=== PATIENT | female | born 1965 | race African-American/Black ===

== ENCOUNTER 2018-06-28 08:29 | Observation (INO) ==
[2018-06-28] MEDS ORDERED: Morphine Inj 4 MG/ML Vial IV.PUSH ONE (08:54)
[2018-06-28] MEDS ORDERED: Famotidine PF Inj 20 MG/2 ML Vial IV.PUSH ONE (08:54)
[2018-06-28] MEDS ORDERED: Sod Chloride 0.9% Inj 1,000 ML IV.CONT SCH (09:00)
--- NOTE | 2018-06-28 09:02 | ED ---
HPI General Chief Complaint: Nausea/Vomiting/Diarrhea Stated Complaint: muscle spasm all over Time Seen by Provider: 06/28/18 08:47 Source: patient and family Mode of arrival: ambulatory Limitations: no limitations History of Present Illness HPI narrative: 53-year-old female complains of abdominal pain with nausea vomiting. Patient states that symptoms started 2 days ago. Patient states the pain and cramping pain sharp pain burning pain localized around epigastric area. Patient denies any pain radiation. Patient denies any blood or mucus in the vomitus of the stool. Patient has history of pancreatitis from alcohol abuse. Patient states that she drinks beers daily. Patient states that she was in a coma that required a tracheostomy and feeding tube a few years ago from severe pancreatitis. Patient status post cholecystectomy. Patient denies any illicit drug abuse. MD complaint: abdominal pain Onset (ago): day(s) Pain Consistency: constant Location: epigastric Severity: moderate Severity scale (1-10): 7 Quality: cramping and burning Radiation: none Migration to: no migration Relieving factors: nothing Exacerbating factors: nothing Associated symptoms: nausea and vomiting Related Data Home Medications Medication Instructions Recorded Confirmed No Known Home Medications 06/28/18 06/28/18 Allergies Allergy/AdvReac Type Severity Reaction Status Date / Time No Known Allergies Allergy Verified 06/28/18 08:56 Review of Systems ROS: all other systems reviewed are negative [facility] Medical History Medical History Pancreatitis (Acute) Surgical History Surgical History History of cholecystectomy (Acute) History of tracheostomy (Acute) Social History Social History Substance History: Active Abuse Second Hand Smoke Exposure: Yes Smoking Status: Current every day smoker Tobacco Type: Cigarettes How Often Do You Have a Drink Containing Alcohol: 4 or more times a week Recent Travel in [facility] within the Last 8 Weeks: No Recent Out of Country Travel within the Last 8 Weeks: No Substance Abuse Detail Alcohol: Substance Use Type Other:: beer Substance Use Status: Active Route Used Substance Abuse: By Mouth Reason for Use: Feels Good Immunization History Tetanus Immunization: <5 Years Hx Influenza Vaccine This Season: Yes Exam Narrative Exam Narrative: GENERAL: Well-nourished, well-developed patient. SKIN: Focused skin assessment warm/dry. HEAD: Normocephalic. EYES: No scleral icterus. No injection or drainage. NECK: Supple, trachea midline. No JVD or lymphadenopathy. CARDIOVASCULAR: Regular rate and rhythm without murmurs, gallops, or rubs. RESPIRATORY: Breath sounds equal bilaterally. No accessory muscle use. GASTROINTESTINAL: Abdomen soft, nondistended. Patient has moderate tenderness on palpation epigastric area. No rebound tenderness. No mass. MUSCULOSKELETAL: No cyanosis, or edema. BACK: Nontender without obvious deformity. No CVA tenderness. Neurologic exam normal. Course Initial Documented Vital Signs Temperature 99.5 F 06/28/18 08:35 Pulse Rate 122 H 06/28/18 08:35 Respiratory Rate 18 06/28/18 08:35 Blood Pressure 129/78 06/28/18 08:35 Pulse Oximetry 99 06/28/18 08:35 Last Documented Vital Signs Temperature 99.5 F 06/28/18 08:35 Pulse Rate 101 H 06/28/18 08:48 Respiratory Rate 18 06/28/18 10:31 Blood Pressure 127/82 06/28/18 08:48 Pulse Oximetry 97 06/28/18 08:48 Medical Decision Making MDM Narrative Medical decision making narrative: 53-year-old female complains of epigastric abdominal pain, nausea vomiting. History of recurrent hepatitis of alcohol abuse in the past. Patient drinking beers daily. Normal saline solution 1 25 cc an hour. Pepcid 20 mg IV. Morphine 2 mg IV. Zofran 4 mg IV. Benadryl 25 mg IV. Medical Screen Exam Complete: Yes Emergency Medical Condition: Yes Differential Diagnosis Differential Diagnosis: Differential diagnosis including gastritis, PUD, pancreatitis, colitis, UTI, pyelonephritis, nephrolithiasis. Lab Data Lab results reviewed: Yes I reviewed the patient's lab results. Result diagrams: 06/28/18 09:17 06/28/18 09:17 Lab Results 06/28/18 06/28/18 06/28/18 Range/Units 09:17 09: 09:17 WBC 2.2 L (4.0-11.0) th/mm3 RBC 4.27 (4.00-5.30) mil/mm3 Hgb 14.5 (11.6-15.3) gm/dL Hct 40.8 (35.0-46.0) % MCV 95.6 (80.0-100.0) fL MCH 34.0 (27.0-34.0) pg MCHC 35.6 (32.0-36.0) % RDW 13.4 (11.6-17.2) % Plt Count 116 L (150-450) th/mm3 MPV 10.3 (7.0-11.0) fL Neut % (Auto) 87.8 H (16.0-70.0) % Lymph % (Auto) 10.6 (9.0-44.0) % [place] % (Auto) 1.1 (0.0-8.0) % Eos % (Auto) 0.2 (0.0-4.0) % Baso % (Auto) 0.3 (0.0-2.0) % Neut # (Auto) 1.9 (1.8-7.7) th/mm3 Lymph # (Auto) 0.2 L (1.0-4.8) th/mm3 [place] # (Auto) 0.0 (0.0-0.9) th/mm3 Eos # (Auto) 0.0 (0.0-0.4) th/mm3 Baso # (Auto) 0.0 (0.0-0.2) th/mm3 WBC Differential . Differential Comment Auto diff final PT 11.0 (9.8-11.6) sec INR 1.1 Ratio APTT 23.1 L (24.3-30.1) sec Sodium 134 L (136-145) meq/L Potassium 3.6 (3.5-5.1) meq/L Chloride 100 (98-107) meq/L Carbon Dioxide 21.3 (21.0-32.0) meq/L Anion Gap 13 (5-15) meq/L BUN 6 L (7-18) mg/dL Creatinine 0.82 (0.50-1.00) mg/dL Estimated GFR 88 L (>89) mL/min Random Glucose 143 H (74-106) mg/dL Calcium 9.1 (8.5-10.1) mg/dL Total Bilirubin 1.0 (0.2-1.0) mg/dL AST 24 (15-37) U/L ALT 22 (10-53) U/L Alkaline Phosphatase 91 (45-117) U/L Total Protein 7.7 (6.4-8.2) g/dL Albumin 3.5 (3.4-5.0) g/dL Lipase 912 H (73-393) U/L Imaging Data Attestation: I personally reviewed and interpreted this imaging study as follows : Radiologist's impression: Abdomen/Pelvis CT 06/28/18 08:54 CONCLUSION: 1. There is a large ovarian dermoid which appears to arise from the left ovary. No adjacent free fluid, however, the size of the mass replaces the adnexa at risk for torsion. 2. Evidence of chronic pancreatitis with dilation of the main pancreatic duct, common bile duct and intrahepatic biliary ducts. There are gastric varices present along the lesser curvature of the stomach. The splenic vein is not visualized and may be occluded. Discharge Plan Discharge Disposition Patient Disposition: 30 Still Patient Discharge Details Diagnosis: Acute pancreatitis Physicians Team ED Provider: Power Evans Primary Care Provider: Primary Care Rosalinda Mendieta Rxs /Orders / Referrals /Forms Prescriptions: No Action No Known Home Medications RF: 0 Discharge Interventions Interventions: Vital Signs Last Done: 06/28/18 08:48 Status ED Status: With Doctor
[2018-06-28 09:26] LABS: Baso % (Auto) 0.3 % (0.0-2.0); Eos % (Auto) 0.2 % (0.0-4.0); Hematocrit 40.8 % (35.0-46.0); Hemoglobin 14.5 gm/dL (11.6-15.3); Lymph # (Auto) 0.2 th/mm3 (1.0-4.8); Lymph % (Auto) 10.6 % (9.0-44.0); Mean Corpuscular HGB Conc 35.6 % (32.0-36.0); Mean Corpuscular Volume 95.6 fL (80.0-100.0); Mean Platelet Volume 10.3 fL (7.0-11.0); Mono % (Auto) 1.1 % (0.0-8.0); Neut # (Auto) 1.9 th/mm3 (1.8-7.7); Neut % (Auto) 87.8 % (16.0-70.0); Platelet Count 116 th/mm3 (150-450); Red Blood Count 4.27 mil/mm3 (4.00-5.30); Red Cell Distribution Width 13.4 % (11.6-17.2); White Blood Count 2.2 th/mm3 (4.0-11.0)
[2018-06-28 09:34] LABS: Activated Partial Thrombo Time 23.1 sec (24.3-30.1); INR 1.1 Ratio
[2018-06-28 09:43] LABS: Alanine Aminotransferase 22 U/L (10-53)
[2018-06-28 09:45] LABS: Alkaline Phosphatase 91 U/L (45-117); Total Protein 7.7 g/dL (6.4-8.2)
[2018-06-28 09:48] LABS: Albumin 3.5 g/dL (3.4-5.0); Anion Gap 13 meq/L (5-15); Aspartate Aminotransferase 24 U/L (15-37); Blood Urea Nitrogen 6 mg/dL (7-18); Calcium 9.1 mg/dL (8.5-10.1); Carbon Dioxide 21.3 meq/L (21.0-32.0); Chloride 100 meq/L (98-107); Glomerular Filtration Rate 88 mL/min (>89); Glucose,Random 143 mg/dL (74-106); Lipase 912 U/L (73-393); Potassium 3.6 meq/L (3.5-5.1); Sodium 134 meq/L (136-145)
--- NOTE | 2018-06-28 10:42 | CT ---
EXAM DATE: 06/28/2018 10:31 AM EDT AGE/SEX: 53 years / Female INDICATIONS: Upper abdomen pain for three days. CLINICAL DATA: This is the patient's initial encounter. Patient reports that signs and symptoms have been present for 3 days and indicates a pain score of 6/10. MEDICAL/SURGICAL HISTORY: Pancreatitis. None. ORAL CONTRAST: No oral contrast ingested. RADIATION DOSE: 6.64 CTDI (mGy) COMPARISON: No prior exams available for comparison. TECHNIQUE: Multiple contiguous axial images were obtained through the abdomen and pelvis following b olus infusion of 85 ml Omnipaque 350 (iohexol) nonionic water-soluble contrast as a single exam dos e. No oral contrast ingested. Using automated exposure control and adjustment of the mA and/or kV ac cording to patient size, radiation dose was kept as low as reasonably achievable to obtain optimal di agnostic quality images. DICOM format image data is available electronically for review and comparis on. FINDINGS: Lower Lungs: The visualized lower lungs are clear. Liver: The liver demonstrates overall normal size and normal attenuation. There is extensive biliary ductal dilation. The patient is status post prior cholecystectomy. The common bile duct is mildly pro minent measuring 8 mm. Spleen: Homogeneous density without enlargement. Pancreas: Pancreas is diffusely abnormal with calcifications identified throughout the parenchyma. T here is dilation of the main pancreatic duct. No mass is visualized. Kidneys: Normal in size and shape. No evidence of concerning mass or hydronephrosis. Adrenal Glands: There is an indeterminant 1.6 cm left adrenal lesion. Aorta: Scattered areas of atherosclerosis. No evidence of aneurysm. There are gastric varices prese nt. Bowel/Mesentery: There is thickening of the distal esophageal mucosa. The stomach appears grossly un remarkable. Large and small bowel are unremarkable. Abdominal Wall: Intact. Retroperitoneum: No evidence of adenopathy in the retrocrural, para-aortic, or deep pelvic regions. Bladder: Contours are smooth. Reproductive Organs: There is a large fat-containing mass which appears to arise from the left ovary . This mass also demonstrates soft tissue components as well as a coarse calcification consistent wit h a large dermoid cyst. This lesion measures 8.3 x 6.3 x 6.5 cm. This lesion displaces the uterus to the right of the pelvis. Inguinal: The inguinal region is unremarkable without evidence of adenopathy. Bony Structures: Unremarkable. CONCLUSION: 1. There is a large ovarian dermoid which appears to arise from the left ovary. No adjacent free flu id, however, the size of the mass replaces the adnexa at risk for torsion. 2. Evidence of chronic pancreatitis with dilation of the main pancreatic duct, common bile duct and intrahepatic biliary ducts. There are gastric varices present along the lesser curvature of the stoma ch. The splenic vein is not visualized and may be occluded. Electronically signed by: Jacinda Lafleur MD 06/28/2018 10:41 AM EDT
[2018-06-28] MEDS ORDERED: Acetaminophen 325 MG Tablet PO PRN ×2 (11:07→11:11)
[2018-06-28] MEDS ORDERED: Bisacodyl 10 MG Supp RECTAL PRN (11:07)
[2018-06-28] MEDS ORDERED: Haloperidol Inj 5 MG/ML Ampul IV.PUSH PRN (11:10)
[2018-06-28] MEDS ORDERED: LORazepam 1 MG Tablet PO PRN (11:10)
[2018-06-28] MEDS ORDERED: Morphine Inj 4 MG/ML Vial IV.PUSH PRN (11:11)
[2018-06-28] MEDS ORDERED: Naloxone Inj 0.4 MG/ML Vial IV.PUSH PRN (11:11)
--- NOTE | 2018-06-28 13:43 | P.HP ---
History of Present Illness Primary Care Physician: No Primary Care Physician Chief Complaint: Abdominal pain History of Present Illness: This is a 53-year-old female with a history of alcoholic pancreatitis. Family history of diabetes mellitus. Patient presents to the emergency department because of abdominal pain. She complains of constant severe burning epigastric pain for the past 3 days worse with fluid intake associated with nausea and vomiting. No hematemesis, fever, chills, diarrhea and UTI symptoms. States she has not had any bowel movement for several days. Admits to continued drinking last intake 5 days ago. At this time, she feels better with improved pain. She is no longer nauseous and wants to eat. All other systems reviewed negative Review of Systems All other systems reviewed negative except as stated in HPI PMFSH - History History Provided By: Patient - Medical History Medical History: Medical History (Last Reviewed 06/28/18 @ 13:39 by Shawn Flores MD) Pancreatitis - Surgical History Surgical History: Surgical History (Last Reviewed 06/28/18 @ 11:03 by Shawn Flores MD) History of cholecystectomy History of tracheostomy - Family History Family History: Family History (Last Updated 06/28/18 @ 13:39 by Shawn Flores MD) Other Family history of diabetes mellitus - Tobacco History Second Hand Smoke Exposure: Yes Tobacco Use In Past 30 Days: Yes Smoking Status: Current every day smoker Tobacco Type: Cigarettes - Alcohol History How Often Do You Have a Drink Containing Alcohol: 4 or more times a week - Substance Use History Substance History: Active Abuse - Substance Use Type Alcohol Type: beer Status: Active Route Used: By Mouth Reason for Use: Feels Good - Travel History Recent Travel in the [place] Within the Last 8 Weeks: No Recent Travel Out of the Country Within the Last 8 Weeks: No - Immunization History Tetanus Immunization: <5 Years Hx Influenza Vaccine This Season: Yes Medications and Allergies Active Medications: Active Medications Acetaminophen (Tylenol) 650 mg PO Q4H PRN PRN Reason: Temp > 100.4 Acetaminophen (Tylenol) 650 mg PO Q6HR PRN PRN Reason: PAIN SCALE 1 TO 2 Hydrocodone Bitart/Acetaminophen ([place] 10/325) 1 tab PO Q4H PRN PRN Reason: PAIN SCALE 6 TO 10 Hydrocodone Bitart/Acetaminophen ([place] 5/325) 1 tab PO Q4H PRN PRN Reason: PAIN SCALE 3 TO 5 Al Hydroxide/Mg Hydroxide (Milk Of Magnesia Liq) 30 ml PO Q12H PRN PRN Reason: Mild Constipation Bisacodyl (Dulcolax Supp) 10 mg RECTAL DAILY PRN PRN Reason: SEVERE CONSITIPATION Famotidine (Pepcid) 10 mg PO BID JOSE F Flumazenil (Romazecon Inj) 0.2 mg IV.PUSH Q1M PRN PRN Reason: OVERSEDATION Haloperidol Lactate (Haldol Inj) 1 mg IV.PUSH Q15M PRN PRN Reason: for severe agitation Sodium Chloride (Ns Inj) 1,000 mls @ 125 mls/hr IV.CONT .Q8H JOSE F Stop: 06/28/18 16:59 Last Admin: 06/28/18 09:17 Dose: 125 mls/hr Potassium Chloride/Sodium Chloride (Ns + Kcl 20 Meq Inj) 1,000 mls @ 100 mls/ hr IV.CONT .Q10H JOSE F Last Admin: 06/28/18 11:18 Dose: 100 mls/hr Lactulose (Lactulose Liq) 30 ml PO DAILY PRN PRN Reason: SEVERE CONSITIPATION Lorazepam (Ativan) 1 mg PO Q4H PRN PRN Reason: for CIWA 8-10 Lorazepam (Ativan) 2 mg PO Q2H PRN PRN Reason: for CIWA 11-14 Lorazepam (Ativan Inj) 2 mg IV.PUSH Q2H PRN PRN Reason: for CIWA 11-14 Lorazepam (Ativan Inj) 2 mg IV.PUSH Q15M PRN PRN Reason: for CIWA > 20 Lorazepam (Ativan Inj) 1 mg IV.PUSH Q4H PRN PRN Reason: for CIWA 8-10 Lorazepam (Ativan Inj) 2 mg IV.PUSH Q1H PRN PRN Reason: for CIWA 15-20 Morphine Sulfate (Morphine Inj) 2 mg IV.PUSH Q4H PRN PRN Reason: BREAKTHROUGH PAIN Last Admin: 06/28/18 11:52 Dose: 2 mg Multivitamins/Folic Acid/Vitamin C (Flintstones) 1 tab CHEW DAILY [facility] Naloxone HCl (Narcan Inj) 0.4 mg IV.PUSH UNSCH PRN PRN Reason: SEE LABEL COMMENTS Ondansetron HCl (Zofran Inj) 4 mg IV.PUSH Q6H PRN PRN Reason: NAUSEA OR VOMITING Senna/Docusate Sodium (Sayra-Colace) 1 tab PO BID [facility] Sennosides (Senokot) 17.2 mg PO Q12H PRN PRN Reason: Moderate Constipation Thiamine HCl (Vitamin B1) 100 mg PO DAILY JOSE F Allergies Allergy/AdvReac Type Severity Reaction Status Date / Time No Known Allergies Allergy Verified 06/28/18 08:56 Home Medications Medication Instructions Recorded Confirmed Type No Known Home Medications 06/28/18 06/28/18 History Exam Vital signs: Vital Signs 06/28/18 08:35 06/28/18 08:48 06/28/18 10:31 Temperature 99.5 F Pulse Rate 122 H 101 H Respiratory Rate 18 18 Blood Pressure 129/78 127/82 Pulse Oximetry 99 97 06/28/18 11:15 06/28/18 11:43 06/28/18 12:00 Temperature 98.6 F Pulse Rate 101 H 103 H Respiratory Rate 18 18 Blood Pressure 117/72 120/73 Pulse Oximetry 98 97 97 06/28/18 12:10 Temperature Pulse Rate Respiratory Rate 18 Blood Pressure Pulse Oximetry Intake & Output 06/27/18 06/28/18 06/28/18 18:59 06:59 18:59 Weight 122 kg Narrative: GENERAL: Well-developed, well-nourished in no distress SKIN: Warm and dry. HEAD: Atraumatic. Normocephalic. EYES: Pupils equal and round. No scleral icterus. No injection or drainage. ENT: No nasal bleeding or discharge. Mucous membranes pink and moist. NECK: Trachea midline. No JVD. CARDIOVASCULAR: Regular rate and rhythm. RESPIRATORY: No accessory muscle use. Clear to auscultation. Breath sounds equal bilaterally. GASTROINTESTINAL: Abdomen soft, slightly tender epigastric nondistended. MUSCULOSKELETAL: Extremities without clubbing, cyanosis, or edema. No obvious deformities. NEUROLOGICAL: Awake and alert. No obvious cranial nerve deficits. Motor grossly within normal limits. Five out of 5 muscle strength in the arms and legs. Normal speech. PSYCHIATRIC: Appropriate mood and affect; insight and judgment normal. Results - Labs CBC & Chem 7: 06/28/18 09:17 06/28/18 09:17 Labs: Laboratory Results - last 24 hr 06/28/18 06/28/18 06/28/18 09:17 09:17 09:17 WBC 2.2 L RBC 4.27 Hgb 14.5 Hct 40.8 MCV 95.6 MCH 34.0 MCHC 35.6 RDW 13.4 Plt Count 116 L MPV 10.3 Neut % (Auto) 87.8 H Lymph % (Auto) 10.6 [place] % (Auto) 1.1 Eos % (Auto) 0.2 Baso % (Auto) 0.3 Neut # (Auto) 1.9 Lymph # (Auto) 0.2 L [place] # (Auto) 0.0 Eos # (Auto) 0.0 Baso # (Auto) 0.0 WBC Differential . Differential Comment Auto diff final PT 11.0 INR 1.1 APTT 23.1 L Sodium 134 L Potassium 3.6 Chloride 100 Carbon Dioxide 21.3 Anion Gap 13 BUN 6 L Creatinine 0.82 Estimated GFR 88 L Random Glucose 143 H Calcium 9.1 Total Bilirubin 1.0 AST 24 ALT 22 Alkaline Phosphatase 91 Total Protein 7.7 Albumin 3.5 Lipase 912 H - Imaging Impressions Abdomen/Pelvis CT 06/28/18 08:54 CONCLUSION: 1. There is a large ovarian dermoid which appears to arise from the left ovary. No adjacent free fluid, however, the size of the mass replaces the adnexa at risk for torsion. 2. Evidence of chronic pancreatitis with dilation of the main pancreatic duct, common bile duct and intrahepatic biliary ducts. There are gastric varices present along the lesser curvature of the stomach. The splenic vein is not visualized and may be occluded. Caprini VTE Risk Assessment Caprini VTE Risk Assessment: No/Low Risk (score <= 1) Caprini Risk Assessment Model: Point Value = 1 Point Value = 2 Point Value = 3 Point Value = 5 Age 41-60 Minor surgery BMI > 25 kg/m2 Swollen legs Varicose veins or History of unexplained or recurrent spontaneous Oral contraceptives or hormone replacement Sepsis (< 1 month) Serious lung disease, including pneumonia (< 1 month) Abnormal pulmonary function Acute myocardial infarction Congestive heart failure (< 1 month) History of inflammatory bowel disease Medical patient at bed rest Age 61-74 Arthroscopic surgery Major open surgery (> 45 min) Laparoscopic surgery (> 45 min) Malignancy Confined to bed (> 72 hours) Immobilizing plaster cast Central venous access Age >= 75 History of VTE Family history of VTE Factor V Leiden Prothrombin [id number] Lupus anticoagulant Anticardiolipin antibodies Elevated serum homocysteine Heparin-induced thrombocytopenia Other congenital or acquired thrombophilia Stroke (< 1 month) Elective arthroplasty Hip, pelvis, or leg fracture Acute spinal cord injury (< 1 month) Prophylaxis Regimen: Total Risk Factor Score Risk Level Prophylaxis Regimen 0-1 Low Early ambulation 2 Moderate Order ONE of the following: *Sequential Compression Device (SCD) *Heparin 5000 units SQ BID 3-4 Higher Order ONE of the following medications: *Heparin 5000 units SQ TID *Enoxaparin/Lovenox 40 mg SQ daily (WT < 150 kg, CrCl > 30 mL/min) *Enoxaparin/Lovenox 30 mg SQ daily (WT < 150 kg, CrCl > 10-29 mL/min) *Enoxaparin/Lovenox 30 mg SQ BID (WT < 150 kg, CrCl > 30 mL/min) AND/OR *Sequential Compression Device (SCD) 5 or more Highest Order ONE of the following medications: *Heparin 5000 units SQ TID (Preferred with Epidurals) *Enoxaparin/Lovenox 40 mg SQ daily (WT < 150 kg, CrCl > 30 mL/min) *Enoxaparin/Lovenox 30 mg SQ daily (WT < 150 kg, CrCl > 10-29 mL/min) *Enoxaparin/Lovenox 30 mg SQ BID (WT < 150 kg, CrCl > 30 mL/min) AND *Sequential Compression Device (SCD) Assessment and Plan - Plan This is a 53-year-old female with a history of alcoholic bronchitis. Presents with abdominal pain, nausea and vomiting. Lipase almost thousand. Admits to continued alcohol use. Alcoholic pancreatitis. Patient will be hospitalized for further treatment. Start clear liquid diet, IV hydration and pain management with Lortab and IV morphine. Mild leukopenia and thrombocytopenia likely secondary to alcohol use. Monitor Left ovarian dermoid. Outpatient follow-up with gynecology DVT prophylaxis with SCD
[2018-06-28] MEDS: Multivit/Folic Acid/Minerals Chewable Tablets CHEW SCH (15:08)
[2018-06-28 19:49] LABS: Bacteria,Urine Rare /hpf; Bilirubin,Urine Negative (Negative); Clarity,Urine Clear (Clear); Color,Urine Yellow (Yellw/Straw); Glucose,Urine (UA) 50 mg/dL (Negative); Leukocyte Esterase,Urine Negative (Negative); Mucus,Urine Few /lpf (Occasional); Nitrite,Urine Negative (Negative); Specific Gravity,Urine 1.008 (1.002-1.035); Squamous Epithelial Cell,Urine 3 /hpf (0-5)
[2018-06-28] MEDS: Senna/Docusate Sodium 8.6/50 MG Tablet PO SCH (20:32)
[2018-06-28] MEDS: Famotidine 20 MG Tablet PO SCH (20:32)
[2018-06-29 05:23] LABS: Baso # (Auto) 0.1 th/mm3 (0.0-0.2); Baso % (Auto) 0.3 % (0.0-2.0); Eos % (Auto) 0.2 % (0.0-4.0); Hematocrit 37.3 % (35.0-46.0); Hemoglobin 12.7 gm/dL (11.6-15.3); Lymph # (Auto) 1.1 th/mm3 (1.0-4.8); Lymph % (Auto) 7.3 % (9.0-44.0); Mean Corpuscular Hemoglobin 33.3 pg (27.0-34.0); Mean Corpuscular Volume 97.9 fL (80.0-100.0); Mean Platelet Volume 11.4 fL (7.0-11.0); Mono # (Auto) 1.3 th/mm3 (0.0-0.9); Mono % (Auto) 8.4 % (0.0-8.0); Neut # (Auto) 12.7 th/mm3 (1.8-7.7); Neut % (Auto) 83.8 % (16.0-70.0); Platelet Count 103 th/mm3 (150-450); Red Blood Count 3.81 mil/mm3 (4.00-5.30); Red Cell Distribution Width 13.5 % (11.6-17.2); White Blood Count 15.1 th/mm3 (4.0-11.0)
[2018-06-29 06:04] LABS: Alanine Aminotransferase 195 U/L (10-53); Albumin 2.8 g/dL (3.4-5.0); Alkaline Phosphatase 178 U/L (45-117); Anion Gap 8 meq/L (5-15); Aspartate Aminotransferase 245 U/L (15-37); Blood Urea Nitrogen 6 mg/dL (7-18); Carbon Dioxide 24.4 meq/L (21.0-32.0); Chloride 107 meq/L (98-107); Glomerular Filtration Rate Greater Than 89 mL/min (>89); Glucose,Random 118 mg/dL (74-106); Lipase 253 U/L (73-393); Potassium 4.2 meq/L (3.5-5.1); Sodium 139 meq/L (136-145); Total Protein 6.4 g/dL (6.4-8.2)
[2018-06-29] MEDS: Famotidine 20 MG Tablet PO SCH ×2 (08:09→21:09)
[2018-06-29] MEDS: Multivit/Folic Acid/Minerals Chewable Tablets CHEW SCH (08:09)
[2018-06-29] MEDS: Senna/Docusate Sodium 8.6/50 MG Tablet PO SCH ×2 (08:09→22:24)
[2018-06-29 11:57] LABS: Hepatitits B Surface Antigen Nonreactive (Nonreactive)
[2018-06-29 12:45] LABS: Hepatitis A IgM Antibody Nonreactive (Nonreactive)
--- NOTE | 2018-06-29 13:41 | P.PNIM ---
Subjective Interval history: Follow-up abdominal pain, acute alcoholic pancreatitis. Patient sitting in bed still complaining of upper abdominal pain in the epigastric area at 6 out of 10 , with some nausea but no vomiting. She said she feels like she wants to burp and feels like bloating. Patient stated she had a bowel movement yesterday. Patient states that she had pancreatitis in 2013, and she had her gallbladder out in 2010. Patient admits that drinking alcohol every day, she was drinking 5 -6 beers every day. Patient denies any shortness of breath, no dizziness, no chest pain. Physical Exam Vital signs: Vital Signs 06/28/18 15:58 06/28/18 19:36 06/28/18 20:00 Temperature 98.9 F 98.6 F Pulse Rate 100 H 89 Respiratory Rate 18 Blood Pressure 106/62 113/70 Pulse Oximetry 95 96 96 06/29/18 00:00 06/29/18 04:00 06/29/18 08:00 Temperature 98.9 F 98.0 F Pulse Rate 87 86 Respiratory Rate 19 21 Blood Pressure 111/58 L 109/72 Pulse Oximetry 93 L 98 99 06/29/18 08:29 06/29/18 11:46 Temperature 98.2 F 98.3 F Pulse Rate 77 81 Respiratory Rate 16 16 Blood Pressure 127/73 147/71 H Pulse Oximetry 99 99 Intake & Output 06/28/18 06/29/18 06/29/18 18:59 06:59 18:59 Intake Total 1999 Balance 1999 Weight 48.534 kg Intake: IV 1999 NS + KCl 20 mEq Inj 1,000 ML @ 1999 100 mls/hr IV.CONT .Q10H [facility] Rx #:[id number] Other: # Voids 3 Date of Last Bowel Movement 06/26/18 06/29/18 # Bowel Movements 1 Weight On Admission 48.534 kg Narrative: GENERAL: Alert and oriented 3, well-nourished, well-developed and in no acute distress SKIN: Warm and dry. HEAD: Atraumatic. Normocephalic. EYES: Pupils equal and round. No scleral icterus. No injection or drainage. ENT: No nasal bleeding or discharge. Mucous membranes pink and moist. NECK: Trachea midline. No JVD. CARDIOVASCULAR: Regular rate and rhythm. RESPIRATORY: No accessory muscle use. Clear to auscultation. Breath sounds equal bilaterally. GASTROINTESTINAL: Abdomen with slight epigastric tenderness, nondistended. Hepatic and splenic margins not palpable. MUSCULOSKELETAL: Extremities without clubbing, cyanosis, or edema. No obvious deformities. NEUROLOGICAL: Awake and alert. No obvious cranial nerve deficits. Motor grossly within normal limits. Five out of 5 muscle strength in the arms and legs. Normal speech. PSYCHIATRIC: Appropriate mood and affect; insight and judgment normal. Results - Labs CBC & Chem 7: 06/29/18 04:15 06/29/18 04:15 Laboratory Results - last 24 hr 06/28/18 06/28/18 06/28/18 14:54 18:05 19:02 WBC RBC Hgb Hct MCV MCH MCHC RDW Plt Count MPV Neut % (Auto) Lymph % (Auto) Swisher % (Auto) Eos % (Auto) Baso % (Auto) Neut # (Auto) Lymph # (Auto) Swisher # (Auto) Eos # (Auto) Baso # (Auto) WBC Differential Differential Comment Sodium Potassium Chloride Carbon Dioxide Anion Gap BUN Creatinine Estimated GFR POC Glucose 179 H 169 H Random Glucose Calcium Total Bilirubin AST ALT Alkaline Phosphatase Total Protein Albumin Lipase Urine Color Yellow Urine Clarity Clear Urine pH 6.0 Ur Specific Dickinson 1.008 Urine Protein Negative Urine Glucose (UA) 50 Urine Ketones Negative Urine Occult Blood Small H Urine Nitrate Negative Urine Bilirubin Negative Urine Urobilinogen Less than 2 Ur Leukocyte Esterase Negative Urine RBC 1 Urine WBC 1 Ur Squamous Epith Cells 3 Urine Bacteria Rare H Urine Mucus Few H Micro UA Comment Culture not ind Ur Microscopic Review Not Reportable Urine Culture Comments Culture not ind Hep Bs Antigen 06/28/18 06/28/18 06/29/18 22:24 22:26 04:15 WBC 15.1 H D RBC 3.81 L Hgb 12.7 Hct 37.3 MCV 97.9 MCH 33.3 MCHC 34.0 RDW 13.5 Plt Count 103 L MPV 11.4 H Neut % (Auto) 83.8 H Lymph % (Auto) 7.3 L Swisher % (Auto) 8.4 H Eos % (Auto) 0.2 Baso % (Auto) 0.3 Neut # (Auto) 12.7 H Lymph # (Auto) 1.1 Swisher # (Auto) 1.3 H Eos # (Auto) 0.0 Baso # (Auto) 0.1 WBC Differential . Differential Comment Auto diff final Sodium Potassium Chloride Carbon Dioxide Anion Gap BUN Creatinine Estimated GFR POC Glucose 273 H 244 H Random Glucose Calcium Total Bilirubin AST ALT Alkaline Phosphatase Total Protein Albumin Lipase Urine Color Urine Clarity Urine pH Ur Specific Dickinson Urine Protein Urine Glucose (UA) Urine Ketones Urine Occult Blood Urine Nitrate Urine Bilirubin Urine Urobilinogen Ur Leukocyte Esterase Urine RBC Urine WBC Ur Squamous Epith Cells Urine Bacteria Urine Mucus Micro UA Comment Ur Microscopic Review Urine Culture Comments Hep Bs Antigen 06/29/18 06/29/18 06/29/18 04:15 08:07 10:35 WBC RBC Hgb Hct MCV MCH MCHC RDW Plt Count MPV Neut % (Auto) Lymph % (Auto) Swisher % (Auto) Eos % (Auto) Baso % (Auto) Neut # (Auto) Lymph # (Auto) Swisher # (Auto) Eos # (Auto) Baso # (Auto) WBC Differential Differential Comment Sodium 139 Potassium 4.2 Chloride 107 Carbon Dioxide 24.4 Anion Gap 8 BUN 6 L Creatinine 0.74 Estimated GFR Greater than 89 POC Glucose 117 H Random Glucose 118 H Calcium 8.0 L D Total Bilirubin 1.6 H AST 245 H ALT 195 H Alkaline Phosphatase 178 H Total Protein 6.4 D Albumin 2.8 L D Lipase 253 Urine Color Urine Clarity Urine pH Ur Specific Dickinson Urine Protein Urine Glucose (UA) Urine Ketones Urine Occult Blood Urine Nitrate Urine Bilirubin Urine Urobilinogen Ur Leukocyte Esterase Urine RBC Urine WBC Ur Squamous Epith Cells Urine Bacteria Urine Mucus Micro UA Comment Ur Microscopic Review Urine Culture Comments Hep Bs Antigen Nonreactive 06/29/18 12:11 WBC RBC Hgb Hct MCV MCH MCHC RDW Plt Count MPV Neut % (Auto) Lymph % (Auto) Swisher % (Auto) Eos % (Auto) Baso % (Auto) Neut # (Auto) Lymph # (Auto) Swisher # (Auto) Eos # (Auto) Baso # (Auto) WBC Differential Differential Comment Sodium Potassium Chloride Carbon Dioxide Anion Gap BUN Creatinine Estimated GFR POC Glucose 129 H Random Glucose Calcium Total Bilirubin AST ALT Alkaline Phosphatase Total Protein Albumin Lipase Urine Color Urine Clarity Urine pH Ur Specific Dickinson Urine Protein Urine Glucose (UA) Urine Ketones Urine Occult Blood Urine Nitrate Urine Bilirubin Urine Urobilinogen Ur Leukocyte Esterase Urine RBC Urine WBC Ur Squamous Epith Cells Urine Bacteria Urine Mucus Micro UA Comment Ur Microscopic Review Urine Culture Comments Hep Bs Antigen Assessment and Plan - Assessment (1) Transaminitis Code(s): R74.0 - Nonspecific elevation of levels of transaminase and lactic acid dehydrogenase [LDH] Status: Acute (2) Alcohol dependence Code(s): F10.20 - Alcohol dependence, uncomplicated Status: Acute (3) Acute pancreatitis Code(s): K85.90 - Acute pancreatitis without necrosis or infection, unspecified Status: Acute - Plan Patient is a 53 years old female with history of alcoholic pancreatitis who came into the emergency room for the complaint of abdominal pain constant severe upper epigastric pain for the past 3 days worse with food intake associated with nausea and vomiting. patient reported drinking 5-6 beer everyday. Alcoholic pancreatitis IV hydration and pain management with oxycodone and IV morphine -MRCP results effusion and ascites consistent with progression of pancreatitis -advance diet as tolerated Transaminitis Likely related to pancreatitis and IV fluid hydration Monitor for liver function panel, check for hepatitis -We will discontinue acetaminophen change pain medication to oxycodone -CT of abdomen and pelvis: Evidence of chronic pancreatitis with dilation of the main pancreatic duct, common bile duct and intrahepatic biliary ducts will check for MRCP, if significant will consult GI -MRCP : Results 1. Chronic calcific pancreatitis with dilatation of pancreatic duct. 2. Mildly prominent common duct into the pancreas. I do not see retained common duct stones. 3. The patient status post cholecystectomy 4. Trace ascites including fluid in the lesser sac 5. Small right-sided pleural effusion 6. Trace left-sided pleural effusion. 7. The effusion and ascites is new from 06/28/2018 consistent with progression of the patient's pancreatitis. Correlation suggested. Leukocytosis Likely related to pancreatitis, no fever or chills, afebrile Monitor CBC Alcohol abuse, Patient reported drinking 6 beers every day -Counseling given on alcohol/EtOH -add folic acid, continue thiamine and multivitamins As needed Ativan for withdrawal, no withdrawal symptoms, no tremors at this time DVT prophylaxis: Increase ambulation Discussed Condition With: Dr. Bullock (3) Acute pancreatitis Qualifiers: Pancreatitis type: alcohol induced Acute pancreatitis complication: no infection or necrosis Qualified Code(s): K85.20 - Alcohol induced acute pancreatitis without necrosis or infection
[2018-06-29] MEDS: Folic Acid 1 MG Tablet PO SCH (13:52)
--- NOTE | 2018-06-29 17:37 | MR ---
EXAM DATE: 06/29/2018 4:34 PM EDT AGE/SEX: 53 years / Female INDICATIONS: Abdominal pain. Chronic pancreatitis by CT CLINICAL DATA: This is the patient's subsequent encounter. Patient reports that signs and symptoms h ave been present for 2 days and indicates a pain score of 3/10. MEDICAL/SURGICAL HISTORY: Pancreatitis. Cholecystectomy. tracheostomy COMPARISON: [facility] [place]OM[place] & PELVIS W CONTRAST, 06/28/2018. . TECHNIQUE: Multiplanar, multisequence images of the abdomen were obtained without contrast including dedicated cholangiographic images. FINDINGS: Patient has chronic pancreatitis by CT scan . Small bilateral pleural effusions are noted largest on the right Trace ascites is evident Pancreas is abnormal with dilatation of the pancreatic duct with cystic changes from body to hand. Induration is present in the lesser sac with a small amount of fluid present in the lesser sac. The head and uncinate process is enlarged. The common duct mildly prominent into the head of the pancreas, probably reservoir phenomena post cho lecystectomy. I don't see evidence for common duct stones. Calcifications are seen in the pancreas. Small cysts are seen in both kidneys. CONCLUSION: 1. Chronic calcific pancreatitis with dilatation of pancreatic duct. 2. Mildly prominent common duct into the pancreas. I do not see retained common duct stones. 3. The patient status post cholecystectomy 4. Trace ascites including fluid in the lesser sac 5. Small right-sided pleural effusion 6. Trace left-sided pleural effusion. 7. The effusion and ascites is new from 06/28/2018 consistent with progression of the patient's pancre atitis. Correlation suggested. Electronically signed by: Jasson Chen MD 06/29/2018 5:36 PM EDT
[2018-06-30 07:52] LABS: Hemoglobin 12.4 gm/dL (11.6-15.3); Mean Corpuscular HGB Conc 34.3 % (32.0-36.0); Mean Corpuscular Hemoglobin 33.4 pg (27.0-34.0); Mean Corpuscular Volume 97.3 fL (80.0-100.0); Mean Platelet Volume 11.3 fL (7.0-11.0); Platelet Count 108 th/mm3 (150-450); Red Cell Distribution Width 13.3 % (11.6-17.2); White Blood Count 9.4 th/mm3 (4.0-11.0)
[2018-06-30 08:19] LABS: Anion Gap 8 meq/L (5-15); Blood Urea Nitrogen 3 mg/dL (7-18); Calcium 8.5 mg/dL (8.5-10.1); Carbon Dioxide 21.6 meq/L (21.0-32.0); Chloride 108 meq/L (98-107); Glomerular Filtration Rate Greater Than 89 mL/min (>89); Glucose,Random 102 mg/dL (74-106); Potassium 3.9 meq/L (3.5-5.1); Sodium 138 meq/L (136-145)
[2018-06-30] MEDS: Senna/Docusate Sodium 8.6/50 MG Tablet PO SCH (08:32)
[2018-06-30] MEDS: Folic Acid 1 MG Tablet PO SCH (08:32)
[2018-06-30] MEDS: Famotidine 20 MG Tablet PO SCH (08:32)
[2018-06-30] MEDS: Multivit/Folic Acid/Minerals Chewable Tablets CHEW SCH (08:32)
[2018-06-30 11:44] LABS: Albumin 2.5 g/dL (3.4-5.0)
[2018-06-30 11:46] LABS: Total Protein 6.1 g/dL (6.4-8.2)
--- NOTE | 2018-06-30 14:19 | P.PN ---
Subjective Interval history: Patient is seen lying comfortably in bed. She tells me that she is tolerating her meals with no nausea or vomiting. She has had a small bowel movement and is urinating normally. Her pain is under control. No chest pain or shortness of breath. Would like to go home as soon as possible. Physical Exam Vital signs: Vital Signs 06/29/18 15:43 06/29/18 16:00 06/29/18 18:22 Temperature 98.4 F 98.3 F Pulse Rate 78 71 Respiratory Rate 18 17 Blood Pressure 139/79 144/77 H Pulse Oximetry 99 97 99 06/29/18 19:57 06/29/18 20:00 06/29/18 20:02 Temperature 98.6 F Pulse Rate 90 Respiratory Rate 20 Blood Pressure 155/79 H Pulse Oximetry 94 L 96 97 06/29/18 21:08 06/29/18 23:23 06/30/18 04:00 Temperature 98.7 F 98.4 F Pulse Rate 91 H 86 Respiratory Rate 18 20 20 Blood Pressure 131/74 149/95 H Pulse Oximetry 96 06/30/18 08:00 06/30/18 09:14 06/30/18 12:00 Temperature 98.5 F 98.9 F Pulse Rate 77 75 85 Respiratory Rate 12 12 Blood Pressure 174/95 H 169/96 H 148/83 H Pulse Oximetry 98 99 Intake & Output 06/29/18 06/30/18 06/30/18 18:59 06:59 18:59 Intake Total 2079 / 2079 80 / 80 1000 / 1000 Balance 2079 / 2079 80 / 80 1000 / 1000 Intake: IV 1000 / 1000 80 / 80 1000 / 1000 NS + KCl 20 mEq Inj 1,000 ML @ 1000 / 1000 80 / 80 1000 / 1000 100 mls/hr IV.CONT .Q10H [facility] Rx #:[id number] Oral 1080 / 1080 Other: # Voids 2 Date of Last Bowel Movement 06/29/18 06/29/18 06/22/18 # Bowel Movements 1 Narrative: GENERAL: Alert and oriented 3, well-nourished, well-developed and in no acute distress SKIN: Warm and dry. HEAD: Atraumatic. Normocephalic. EYES: Pupils equal and round. No scleral icterus. No injection or drainage. CARDIOVASCULAR: Regular rate and rhythm. RESPIRATORY: No accessory muscle use. Clear to auscultation. Breath sounds equal bilaterally. GASTROINTESTINAL: Abdomen with slight epigastric tenderness, nondistended. Hepatic and splenic margins not palpable. MUSCULOSKELETAL: Extremities without clubbing, cyanosis, or edema. No obvious deformities. NEUROLOGICAL: Awake and alert. No obvious cranial nerve deficits. Motor grossly within normal limits. Five out of 5 muscle strength in the arms and legs. Normal speech. PSYCHIATRIC: Appropriate mood and affect; insight and judgment normal. Results - Labs CBC & Chem 7: 06/30/18 07:05 06/30/18 07:05 Laboratory Results - last 24 hr 06/29/18 06/29/18 06/30/18 17:04 18:08 07:05 WBC 9.4 RBC 3.70 L Hgb 12.4 Hct 36.0 MCV 97.3 MCH 33.4 MCHC 34.3 RDW 13.3 Plt Count 108 L MPV 11.3 H Sodium Potassium Chloride Carbon Dioxide Anion Gap BUN Creatinine Estimated GFR POC Glucose 120 H Random Glucose Calcium Total Bilirubin Direct Bilirubin Indirect Bilirubin AST ALT Alkaline Phosphatase Total Protein Albumin Lipase 235 06/30/18 06/30/18 06/30/18 07:05 07:05 09:13 WBC RBC Hgb Hct MCV MCH MCHC RDW Plt Count MPV Sodium 138 Potassium 3.9 Chloride 108 H Carbon Dioxide 21.6 Anion Gap 8 BUN 3 L Creatinine 0.46 L Estimated GFR Greater than 89 POC Glucose 102 Random Glucose 102 Calcium 8.5 Total Bilirubin 1.9 H Direct Bilirubin 1.6 H Indirect Bilirubin 0.3 AST 124 H ALT 126 H Alkaline Phosphatase 200 H Total Protein 6.1 L Albumin 2.5 L Lipase 06/30/18 12:30 WBC RBC Hgb Hct MCV MCH MCHC RDW Plt Count MPV Sodium Potassium Chloride Carbon Dioxide Anion Gap BUN Creatinine Estimated GFR POC Glucose 161 H Random Glucose Calcium Total Bilirubin Direct Bilirubin Indirect Bilirubin AST ALT Alkaline Phosphatase Total Protein Albumin Lipase - Imaging Impressions Cholangiopancreatography MRI 06/29/18 00:00 CONCLUSION: 1. Chronic calcific pancreatitis with dilatation of pancreatic duct. 2. Mildly prominent common duct into the pancreas. I do not see retained common duct stones. 3. The patient status post cholecystectomy 4. Trace ascites including fluid in the lesser sac 5. Small right-sided pleural effusion 6. Trace left-sided pleural effusion. 7. The effusion and ascites is new from 06/28/2018 consistent with progression of the patient's pancreatitis. Correlation suggested. Assessment and Plan - Assessment (1) Transaminitis Code(s): R74.0 - Nonspecific elevation of levels of transaminase and lactic acid dehydrogenase [LDH] Status: Acute (2) Alcohol dependence Code(s): F10.20 - Alcohol dependence, uncomplicated Status: Acute (3) Acute pancreatitis Code(s): K85.90 - Acute pancreatitis without necrosis or infection, unspecified Status: Acute - Plan Patient is a 53 years old female with history of alcoholic pancreatitis who came into the emergency room for the complaint of abdominal pain constant severe upper epigastric pain for the past 3 days worse with food intake associated with nausea and vomiting. patient reported drinking 5-6 beer everyday. Alcoholic pancreatitis IV hydration and pain management with oxycodone and IV morphine -MRCP results effusion and ascites consistent with progression of pancreatitis -advance diet as tolerated Transaminitis Likely related to pancreatitis and IV fluid hydration Monitor for liver function panel, hepatitis negative; AST/ALT improving; lipase now normal. -We will discontinue acetaminophen change pain medication to oxycodone -CT of abdomen and pelvis: Evidence of chronic pancreatitis with dilation of the main pancreatic duct, common bile duct and intrahepatic biliary ducts will check for MRCP, if significant will consult GI -MRCP : Results 1. Chronic calcific pancreatitis with dilatation of pancreatic duct. 2. Mildly prominent common duct into the pancreas. I do not see retained common duct stones. 3. The patient status post cholecystectomy 4. Trace ascites including fluid in the lesser sac 5. Small right-sided pleural effusion 6. Trace left-sided pleural effusion. 7. The effusion and ascites is new from 06/28/2018 consistent with progression of the patient's pancreatitis. Correlation suggested. Leukocytosis; resolved Likely related to pancreatitis, no fever or chills, afebrile Monitor CBC Alcohol abuse, Patient reported drinking 6 beers every day -Counseling given on alcohol/EtOH -add folic acid, continue thiamine and multivitamins As needed Ativan for withdrawal, no withdrawal symptoms, no tremors at this time Dermoid cyst on left ovary -Incidental finding; follow-up outpatient DVT prophylaxis: Increase ambulation Discussed Condition With: Dr. Bullock, nurse and patient (3) Acute pancreatitis Qualifiers: Pancreatitis type: alcohol induced Acute pancreatitis complication: no infection or necrosis Qualified Code(s): K85.20 - Alcohol induced acute pancreatitis without necrosis or infection
--- NOTE | 2018-06-30 14:32 | P.DS ---
Date of admission: 06/28/18 11:08 Primary care physician: No Primary Care Physician Attending physician on discharge: Maco Bullock Anticipated date of discharge: 06/30/18 Brief History from admission: This is a 53-year-old female with a history of alcoholic pancreatitis. Family history of diabetes mellitus. Patient presents to the emergency department because of abdominal pain. She complains of constant severe burning epigastric pain for the past 3 days worse with fluid intake associated with nausea and vomiting. No hematemesis, fever, chills, diarrhea and UTI symptoms. States she has not had any bowel movement for several days. Admits to continued drinking last intake 5 days ago. At this time, she feels better with improved pain. She is no longer nauseous and wants to eat. All other systems reviewed negative DS: Diagnosis - Discharge Diagnosis (1) Transaminitis Status: Acute (2) Alcohol dependence Status: Acute (3) Acute pancreatitis Status: Acute DS: Summary Hospital Course: Patient is a 53 years old female with history of alcoholic pancreatitis who came into the emergency room for the complaint of abdominal pain constant severe upper epigastric pain for the past 3 days. Pain was worse with food intake associated with nausea and vomiting. patient reported drinking 5-6 beer everyday. MRCP results consistent with progression of pancreatitis. Lipase initially elevated however returned to normal with IV fluids and pancreatic rest. Liver enzymes improving; patient will need follow-up outpatient with GI. Incidental finding included dermoid cyst on left ovary -patient to follow-up outpatient with [facility]. Patient counseled on EtOH abuse; encouraged quitting. - Time Spent with Patient Total time spent providing and/or coordinating discharge services: Less than 30 minutes - Quality: VTE Deep Vein Thrombosis/Pulmonary Embolism Present on Admission: No Exam Vital signs: Vital Signs 06/29/18 15:43 06/29/18 16:00 06/29/18 18:22 Temperature 98.4 F 98.3 F Pulse Rate 78 71 Respiratory Rate 18 17 Blood Pressure 139/79 144/77 H Pulse Oximetry 99 97 99 06/29/18 19:57 06/29/18 20:00 06/29/18 20:02 Temperature 98.6 F Pulse Rate 90 Respiratory Rate 20 Blood Pressure 155/79 H Pulse Oximetry 94 L 96 97 06/29/18 21:08 06/29/18 23:23 06/30/18 04:00 Temperature 98.7 F 98.4 F Pulse Rate 91 H 86 Respiratory Rate 18 20 20 Blood Pressure 131/74 149/95 H Pulse Oximetry 96 06/30/18 08:00 06/30/18 09:14 06/30/18 12:00 Temperature 98.5 F 98.9 F Pulse Rate 77 75 85 Respiratory Rate 12 12 Blood Pressure 174/95 H 169/96 H 148/83 H Pulse Oximetry 98 99 Intake & Output 06/29/18 06/30/18 06/30/18 18:59 06:59 18:59 Intake Total 2079 80 / 80 1000 / 1000 Balance 2079 80 / 80 1000 / 1000 Intake: IV 1000 / 1000 80 / 80 1000 / 1000 NS + KCl 20 mEq Inj 1,000 ML @ 1000 / 1000 80 / 80 1000 / 1000 100 mls/hr IV.CONT .Q10H [facility] Rx #:[id number] Oral 1080 / 1080 Other: # Voids 2 Date of Last Bowel Movement 06/29/18 06/29/18 06/22/18 # Bowel Movements 1 Narrative: GENERAL: Alert and oriented 3, well-nourished, well-developed and in no acute distress SKIN: Warm and dry. HEAD: Atraumatic. Normocephalic. EYES: Pupils equal and round. No scleral icterus. No injection or drainage. CARDIOVASCULAR: Regular rate and rhythm. RESPIRATORY: No accessory muscle use. Clear to auscultation. Breath sounds equal bilaterally. GASTROINTESTINAL: Abdomen with slight epigastric tenderness, nondistended. Hepatic and splenic margins not palpable. MUSCULOSKELETAL: Extremities without clubbing, cyanosis, or edema. No obvious deformities. NEUROLOGICAL: Awake and alert. No obvious cranial nerve deficits. Motor grossly within normal limits. Five out of 5 muscle strength in the arms and legs. Normal speech. PSYCHIATRIC: Appropriate mood and affect; insight and judgment normal. Results Procedures completed during hospitalization: none Labs on day of discharge: Labs from last 24 hours 06/30/18 06/30/18 06/30/18 12:30 09:13 07:05 WBC RBC Hgb Hct MCV MCH MCHC RDW Plt Count MPV Sodium Potassium Chloride Carbon Dioxide Anion Gap BUN Creatinine Estimated GFR POC Glucose 161 H 102 Random Glucose Calcium Total Bilirubin 1.9 H Direct Bilirubin 1.6 H Indirect Bilirubin 0.3 AST 124 H ALT 126 H Alkaline Phosphatase 200 H Total Protein 6.1 L Albumin 2.5 L Lipase 06/30/18 06/30/18 06/29/18 07:05 07:05 18:08 WBC 9.4 RBC 3.70 L Hgb 12.4 Hct 36.0 MCV 97.3 MCH 33.4 MCHC 34.3 RDW 13.3 Plt Count 108 L MPV 11.3 H Sodium 138 Potassium 3.9 Chloride 108 H Carbon Dioxide 21.6 Anion Gap 8 BUN 3 L Creatinine 0.46 L Estimated GFR Greater than 89 POC Glucose Random Glucose 102 Calcium 8.5 Total Bilirubin Direct Bilirubin Indirect Bilirubin AST ALT Alkaline Phosphatase Total Protein Albumin Lipase 235 06/29/18 17:04 WBC RBC Hgb Hct MCV MCH MCHC RDW Plt Count MPV Sodium Potassium Chloride Carbon Dioxide Anion Gap BUN Creatinine Estimated GFR POC Glucose 120 H Random Glucose Calcium Total Bilirubin Direct Bilirubin Indirect Bilirubin AST ALT Alkaline Phosphatase Total Protein Albumin Lipase - Impressions ITS Impressions Abdomen/Pelvis CT 06/28/18 08:54 CONCLUSION: 1. There is a large ovarian dermoid which appears to arise from the left ovary. No adjacent free fluid, however, the size of the mass replaces the adnexa at risk for torsion. 2. Evidence of chronic pancreatitis with dilation of the main pancreatic duct, common bile duct and intrahepatic biliary ducts. There are gastric varices present along the lesser curvature of the stomach. The splenic vein is not visualized and may be occluded. Cholangiopancreatography MRI 06/29/18 00:00 CONCLUSION: 1. Chronic calcific pancreatitis with dilatation of pancreatic duct. 2. Mildly prominent common duct into the pancreas. I do not see retained common duct stones. 3. The patient status post cholecystectomy 4. Trace ascites including fluid in the lesser sac 5. Small right-sided pleural effusion 6. Trace left-sided pleural effusion. 7. The effusion and ascites is new from 06/28/2018 consistent with progression of the patient's pancreatitis. Correlation suggested. Discharge Plan - Discharge Disposition Patient Disposition: 01 Discharge Home - Discharge Condition Condition: Stable - Discharge Order Discharge Orders: Discharge Order (Routine); Ordered 06/30/18 Ordered By: Rosalind Hampton - Physicians Team Primary Care Provider: Primary Care Rosalinda Mendieta Attending Provider: Maco Bullock
== END 2018-06-30 15:40 | disposition home or self-care (01) ==
LOC: NEDA 08:29 → NEPC 08:29 → NEDA 12:38 → NEPGCP 13:25
PROVIDERS: ADMIT Hospitalist; ATTEND Hospitalist
DX: F17.210 Nicotine dependence, cigarettes, uncomplicated; K85.20 Alcohol induced acute pancreatitis without necrosis or infection; Z90.49 Acquired absence of other specified parts of digestive tract; D27.1 Benign neoplasm of left ovary; D69.59 Other secondary thrombocytopenia; I86.4 Gastric varices; J90 Pleural effusion, not elsewhere classified; M62.838 Other muscle spasm; Z83.3 Family history of diabetes mellitus; K86.1 Other chronic pancreatitis; F10.20 Alcohol dependence, uncomplicated; R18.8 Other ascites; D72.819 Decreased white blood cell count, unspecified